=== PATIENT | female | born 1995 | race Caucasian/White ===

== ENCOUNTER 2016-07-07 12:53 | Emergency (ER) | payer OTHER ==
[~2016-07-07] VITALS: Ht 162.6 cm; Wt 88.0 kg
[~2016-07-07 12:53] MED LIST: AC500T PO; CEFD300C9 PO; MEDR150V IM; ONDA4TAB8 PO; ONDAN4ODT PO; PRED10TA PO; PRED20TA PO; PRED5TAB PO; ZPR20C PO; birth control pills
--- NOTE | 2016-07-07 13:15 | NUR ---
PT STATES SHE COULD GO TO THE RESTROOM AT THIS POINT. [employer] TECH WILL BE NOTIFIED BY DISPATCHER [employer]. CL
[2016-07-07 14:00] LABS: BASOPHILS % (AUTO) 0 % (0-2); EOSINOPHILS # (AUTO) 0.1 10^3uL; EOSINOPHILS % (AUTO) 1 % (0-4); MEAN CORPUSCULAR HEMOGLOBIN 28.9 PG (26.0-34.0); MEAN CORPUSCULAR HGB CONC 34.4 g/dL (31.0-37.0); MEAN CORPUSCULAR VOLUME 84 FL (80-100); MEAN PLATELET VOLUME 9.1 FL (6.0-9.5); MONOCYTES # (AUTO) 0.7 X10^3; MONOCYTES % (AUTO) 7 % (3-11); NEUTROPHILS # (AUTO) 6.8 X10^3; NEUTROPHILS % (AUTO) 72 % (51-67); PLATELET COUNT 234 10^3uL (150-450); WHITE BLOOD COUNT 9.53 10^3uL (4.0-11.0)
[2016-07-07 14:10] LABS: ALBUMIN 3.8 g/dL (3.4-5.0); TOTAL PROTEIN 6.7 g/dL (6.4-8.5)
--- NOTE | 2016-07-07 14:20 | NUR ---
[employer] STATES SHE WILL NOTIFY RADIOLOGY TO SEND A COPY OF SONO REPORT TO DR WINTERS WHOM PT IS SCHED TO SEE ON . CL
[2016-07-07 14:26] LABS: BILIRUBIN,URINE Negative (Negative); CLARITY,URINE Clear; COLOR,URINE Yellow; GLUCOSE, URINE (UA) Negative (Negative); LEUKOCYTE ESTERASE ,URINE Negative (Negative); UROBILINOGEN,URINE 0.2 mg/dL (0.2-1.0)
[2016-07-07] MEDS ORDERED: RHO(D) IMMUNE GLOBULIN 1,500 UNIT/2 ML SYRINGE IM ONE (15:00)
--- NOTE | 2016-07-07 15:10 | NUR ---
[facility] & PHARMACY NOTIFIED OF ORDER FOR [place]. CL
--- NOTE | 2016-07-07 15:21 | NUR ---
LAB CALLS TO INFORM US THAT PHARMACY WILL BE BRINGING UP MED BUT LAB HAS NEED TO DO SOMETHING MORE FOR HER BEFORE SHOT CAN BE GIVEN. CL
--- NOTE | 2016-07-07 16:16 | Diagnostic Imaging Report ---
EXAMINATION: Obstetrical sonography. INDICATION: Status post fall. FINDINGS: Within the uterus, there is a single live intrauterine gestation. Based on today's crown-rump length measurement, this is estimated at 6 weeks and 6 days gestational age. cardiac motion is appropriate and measured at 144 beats per minute. No subchorionic hematoma is demonstrated. The appearance of both ovaries is normal. There is no free fluid within the pelvis. Images obtained of the spleen demonstrate no splenic abnormality or adjacent perisplenic fluid. IMPRESSION: 1. Single live intrauterine gestation at 6 weeks 6 days gestational age based on today's crown-rump length measurement. This corresponds to an estimated date of delivery of February 24, 2017. 2. Appropriate cardiac motion. 3. Unremarkable appearance of the ovaries. No free fluid within the pelvis. 4. Unremarkable sonographic appearance of the spleen. There is no evidence of perisplenic fluid. Dictated by: Dictated on workstation # [id number]
[2016-07-07 19:57] VITALS: BP 127/73
[2016-07-07] MEDS ORDERED: PREN1TAB71 PO (20:00)
== END 2016-07-07 15:44 | disposition home or self-care (01) ==
LOC: ED 12:55
DX: O9A.211 Injury, poisoning and certain other consequences of external causes complicating pregnancy, first trimester (principal); O20.0 Threatened abortion; Z3A.01 Less than 8 weeks gestation of pregnancy; W00.0XXA Fall on same level due to ice and snow, initial encounter
CPT/HCPCS: 36415; 76801; 76817; 80053; 81003; 85025; 86850; 86900; 86901; 99282; J2791

== ENCOUNTER 2016-08-03 04:42 | Emergency (ER) | payer OTHER, MEDICAID ==
[~2016-08-03] VITALS: Ht 160 cm; Wt 86.7 kg
[2016-08-03 05:47] LABS: BASOPHILS % (AUTO) 0 % (0-2); EOSINOPHILS % (AUTO) 0 % (0-4); LYMPHOCYTES # (AUTO) 0.6 X10^3; MEAN CORPUSCULAR HEMOGLOBIN 29.9 PG (26.0-34.0); MEAN CORPUSCULAR VOLUME 84 FL (80-100); MEAN PLATELET VOLUME 9.3 FL (6.0-9.5); MONOCYTES # (AUTO) 0.6 X10^3; MONOCYTES % (AUTO) 9 % (3-11); NEUTROPHILS # (AUTO) 5.5 X10^3; NEUTROPHILS % (AUTO) 82 % (51-67); PLATELET COUNT 197 10^3uL (150-450); WHITE BLOOD COUNT 6.76 10^3uL (4.0-11.0)
[2016-08-03 05:48] LABS: MEAN CORPUSCULAR HGB CONC 35.8 g/dL (31.0-37.0)
[2016-08-03 06:07] LABS: ANION GAP 12.7 MEQ/L (3-15)
--- NOTE | 2016-08-03 06:30 | NUR ---
Dr. Esquivel notified of temp of 101.2. Pt last dose of tylenol at 0400. Pt to be discharged per Dr. Esquivel.
[2016-08-03 06:38] VITALS: BP 103/61
== END 2016-08-03 06:32 | disposition home or self-care (01) ==
LOC: EDUNIT# 04:42 → ED 04:44
DX: J11.1 Influenza due to unidentified influenza virus with other respiratory manifestations (principal); R50.81 Fever presenting with conditions classified elsewhere
CPT/HCPCS: 36415; 80048; 85025; 96360; 99284; J7030; 99282

== ENCOUNTER → 2016-08-09 | Outpatient (CLI) | payer OTHER, MEDICAID ==
[2016-08-09 13:25] LABS: AMPHETAMINE SCREEN, URINE Negative (Negative); CANNABINOID SCREEN, URINE Negative (Negative); METHAMPHETAMINE SCREEN URINE S NEGATIVE (NEGATIVE); OPIATE SCREEN URINE Negative (Negative); PROPOXYPHENE STAT NEGATIVE (NEGATIVE)
== END ==
LOC: LAB 12:49
PROVIDERS: ATTEND Family Medicine
DX: F15.21 Other stimulant dependence, in remission (principal)
CPT/HCPCS: 80307

== ENCOUNTER 2016-09-01 20:52 | Emergency (ER) | payer OTHER, MEDICAID ==
[~2016-09-01] VITALS: Ht 160 cm; Wt 87.3 kg
[2016-09-01 21:51] LABS: BILIRUBIN,URINE Negative (Negative); COLOR,URINE Yellow; GLUCOSE, URINE (UA) Negative (Negative); LEUKOCYTE ESTERASE ,URINE Negative (Negative); UROBILINOGEN,URINE 0.2 mg/dL (0.2-1.0)
[2016-09-01 21:55] LABS: CLARITY,URINE Slightly Cloudy
[2016-09-02 00:23] VITALS: BP 131/84
== END 2016-09-02 00:23 | disposition home or self-care (01) ==
LOC: ED 20:57
DX: O20.9 Hemorrhage in early pregnancy, unspecified (principal); O99.332 Smoking (tobacco) complicating pregnancy, second trimester; F17.210 Nicotine dependence, cigarettes, uncomplicated; Z3A.15 15 weeks gestation of pregnancy
CPT/HCPCS: 36415; 76805; 81003; 86850; 86870; 99283; 99284

== ENCOUNTER → 2016-10-02 | Outpatient (REF) | payer OTHER, MEDICAID ==
[~2016-10-02] MED LIST changes: +PREN1TAB71 PO
[2016-10-02 12:15] LABS: AMPHETAMINE SCREEN, URINE Negative (Negative); CANNABINOID SCREEN, URINE Negative (Negative); METHAMPHETAMINE SCREEN URINE S NEGATIVE (NEGATIVE); OPIATE SCREEN URINE Negative (Negative); PROPOXYPHENE STAT NEGATIVE (NEGATIVE)
== END ==
LOC: LAB 11:36
PROVIDERS: ATTEND Family Medicine
DX: Z34.81 Encounter for supervision of other normal pregnancy, first trimester (principal)
CPT/HCPCS: 80307

== ENCOUNTER → 2016-10-07 | Outpatient (CLI) | payer OTHER, MEDICAID ==
--- NOTE | 2016-10-07 13:34 | Diagnostic Imaging Report ---
INDICATION: Anatomical survey. COMPARISON: 09/01/2016. DISCUSSION: A transabdominal sonographic evaluation of the gravid uterus was performed. Single live intrauterine at 20 weeks 4 days by sonographic measurements. Appropriate interval growth. Biparietal diameter measures 4.9 cm. Head circumference measures 17.7 cm. Abdominal circumference measures 13.5 cm. Femur length measures 3.7 cm. heart rate measures 163 BPM. EDC by today's ultrasound is 02/20/2017. presentation is cephalic. The placenta is located posteriorly with no placenta previa. Normal amniotic fluid index measuring 12.5 cm. There is poor visualization of the kidneys. There is good visualization of the stomach, bladder, aorta, brain, three-vessel cord and insertion, four-chamber heart, spine, and extremities. No acute abnormality is identified. The gender is female. IMPRESSION: 1. Single live intrauterine at 20 weeks 4 days by sonographic measurements. 2. Poor visualization of the kidneys. Recommend short-term sonographic followup. The remainder of the anatomical survey appears within normal limits. Dictated by: Dictated on workstation # [id number]
== END ==
LOC: RAD 09:55
PROVIDERS: ATTEND Family Medicine
DX: Z36 Encounter for antenatal screening of mother (principal)
CPT/HCPCS: 76805

== ENCOUNTER 2016-11-12 19:55 | Outpatient (CLI) | payer OTHER, MEDICAID ==
[~2016-11-12] VITALS: Ht 160 cm; Wt 88.0 kg
[2016-11-12 20:25] VITALS: BP 121/67
[2016-11-12 20:55] LABS: BILIRUBIN,URINE Negative (Negative); CLARITY,URINE Clear; COLOR,URINE Yellow; GLUCOSE, URINE (UA) Negative (Negative); LEUKOCYTE ESTERASE ,URINE Negative (Negative)
== END 2016-11-12 21:20 ==
LOC: EUOP 19:55 → OB 19:55 → EUOP 21:20
PROVIDERS: ATTEND Obstetrics & Gynecology
DX: O26.892 Other specified pregnancy related conditions, second trimester (principal); Z3A.25 25 weeks gestation of pregnancy; R10.31 Right lower quadrant pain; R10.32 Left lower quadrant pain
CPT/HCPCS: 81003; 84112